=== PATIENT | female | born 1955 | race Caucasian/White ===

== ENCOUNTER 2019-08-29 10:38 | Emergency (ER) | payer MEDICARE, MEDICAID ==
[~2019-08-29] VITALS: Ht 167.6 cm; Wt 72.0 kg
[2019-08-29 10:56] VITALS: BP 138/80
--- NOTE | 2019-08-29 11:54 | NUR ---
CHRISTEL Arndt at bedside.
[2019-08-29] MEDS ORDERED: AZIT250T83 PO (12:24)
[2019-08-29] MEDS ORDERED: METH4TAB81 PO (12:24)
== END 2019-08-29 12:57 | disposition home or self-care (01) ==
LOC: ER 10:39
DX: J44.1 Chronic obstructive pulmonary disease with (acute) exacerbation (principal); G89.29 Other chronic pain; Z87.891 Personal history of nicotine dependence; Z88.0 Allergy status to penicillin
CPT/HCPCS: 71046; 99283

== ENCOUNTER 2022-10-30 11:31 | Emergency (ER) | payer MEDICARE, MEDICAID ==
[~2022-10-30] VITALS: Ht 167.6 cm; Wt 73.6 kg
[~2022-10-30 11:31] MED LIST: ALBU8HFA PO; BACL10TA2 PO; BUDE10.22 PO; DOCU-148 PO; DULO60CA65 PO; HYDR-3964 PO; LAMO100T PO; LORA10TA7 PO; LYSI500T11 PO; OXYB5TAB16 PO; PANT40TA54 PO; PREG100C55 PO; PRIM50TA5; TIOT18CA3
[2022-10-30 11:38] VITALS: BP 156/82
[2022-10-30] MEDS ORDERED: ketorolac trometh inj. 60 MG/2 ML VIAL IM ONE (14:00)
[2022-10-30] MEDS ORDERED: dexamethasone sod phosphate 10mg/ml inj IM STA (14:00)
[2022-10-30] MEDS ORDERED: orphenadrine citrate 60mg/2ml inj. IM ONE (14:00)
[2022-10-30] MEDS ORDERED: LIDOcaine 5% patch TP STA (16:29)
[2022-10-30] MEDS ORDERED: oxyCODONE/APAP 5-325mg tablet PO ONE (16:30)
[2022-10-30] MEDS ORDERED: GABA300C PO (17:17)
[2022-10-30] MEDS ORDERED: DIAZ5TAB22 PO (17:17)
[2022-10-30] MEDS ORDERED: NAPR-56 PO (17:17)
[2022-10-30] MEDS ORDERED: LIDO700A32 TOP (17:17)
== END 2022-10-30 17:37 | disposition home or self-care (01) ==
LOC: ER 11:32
DX: M54.41 Lumbago with sciatica, right side (principal); G89.29 Other chronic pain
CPT/HCPCS: 72131; 96372; 99285; J1100; J1885; J2360

== ENCOUNTER 2024-11-18 06:02 | Day surgery (SDC) | payer MEDICARE, MEDICAID ==
--- NOTE | 2024-11-11 14:39 | ELECTROCARDIOGRAPH REPORT ---
[facility] Test Date: 2024-11-11 Test Time: 14:36:03 Pat Name: OLLIE MARQUEZ Department: [facility]-PRE-OP Patient ID: [facility]-[id number] Room: Gender: F Ssrs Report Developer: BELKIS : 1955 Requested By: RAI ELIZONDO Order Number: [id number] Reading MD: Dr. DOLLY Aguilar Measurements Intervals [place] Rate: 53 P: 50 HI: 200 QRS: -66 QRSD: 98 T: 63 QT: 457 QTc: 430 Interpretive Statements Sinus bradycardia Left anterior fascicular block Abnormal R-wave progression, early transition Electronically Signed On 11-11-2024 17:45:[address] DOLLY Aguilar Please click the below link to view image of tracing.
[~2024-11-18] VITALS: Ht 167.6 cm; Wt 70.0 kg
[2024-11-18] VITALS (10 sets, daily range): BP systolic 100–129; BP diastolic 58–78; PULSE 65–80; RESP 10–18; TEMP 97.1; O2SAT 90–97
[2024-11-18] MEDS: tranexamic acid 1gm/0.7% sal. 100 ML IV ONE (05:30)
[2024-11-18] MEDS: clindamycin-Cleocin 900mg/D5W 50 ML IV ONE (05:30)
[~2024-11-18 06:02] MED LIST changes: -ALBU8HFA PO; -BACL10TA2 PO; -BUDE10.22 PO; -DOCU-148 PO; +DULO30CA52 PO; -DULO60CA65 PO; +GARL100T PO; -HYDR-3964 PO; +LAMO25TA5 PO; +MAGN250T11 PO; +MONT-47 PO; +MULT-1133 PO; -OXYB5TAB16 PO; +OXYB5TAB21 PO; -PANT40TA54 PO; +POTA99CA PO; -PREG100C55 PO; +PREG100C56 PO; -PRIM50TA5; +PRIM50TA5 PO; +SENN1TAB33 PO; -TIOT18CA3
[2024-11-18] MEDS ORDERED: cocaine 4% topical solution 4ml bottle ONE (06:42)
[2024-11-18] MEDS ORDERED: LIDOcaine 1% W/epiNEPHrine 1:100,000 20ml vial ONE (06:42)
[2024-11-18] MEDS ORDERED: methylPREDNISolone acetate 80mg/ml inj**IM only ONE (06:42)
[2024-11-18] MEDS ORDERED: oxymetazoline 15 ML nasal spray NS ONE (06:42)
[2024-11-18] MEDS ORDERED: epiNEPHrine 1 mg/ml 30ml MDV ONE (06:42)
[2024-11-18] MEDS ORDERED: mupirocin 2% ointment 22GM ONE (06:42)
[2024-11-18] MEDS ORDERED: Thrombin (Bovine) 5,000 unit vial TP ONE (06:43)
[2024-11-18] MEDS: famotidine 20mg tablet PO ONE (06:56)
[2024-11-18] MEDS: ringers solution, lacted 1,000 ML IV SCH ×2 (06:56→12:02)
[2024-11-18] MEDS: oxymetazoline 15 ML nasal spray NS ONE (06:57)
[2024-11-18] MEDS ORDERED: fentaNYL/PF 50MCG/1 ML 2ML syringe ONE (07:51)
[2024-11-18] MEDS ORDERED: LIDOcaine 2% (20mg/ml) 5ml vial ONE (07:52)
[2024-11-18] MEDS ORDERED: propofol inj 20 ML IV ONE (07:52)
[2024-11-18] MEDS ORDERED: dexamethasone sod phosphate 4mg/ml inj. ONE (07:52)
[2024-11-18] MEDS ORDERED: ondansetron/PF 4mg/2ml inj ONE (07:52)
[2024-11-18] MEDS ORDERED: midazolam 1 mg/ML 2ml injection ONE (07:52)
[2024-11-18] MEDS ORDERED: sevoflurane 250ml liquid IH ONE (08:00)
[2024-11-18] MEDS ORDERED: ePHEDrine 50MG/ML INJ. ONE (08:29)
[2024-11-18] MEDS ORDERED: acetaminophen 1,000mg/100ml IV 100 ML IV ONE (08:30)
[2024-11-18] MEDS ORDERED: hydrALAZINE 20mg/ml inj. IV PRN (08:50)
[2024-11-18] MEDS ORDERED: meperidine/PF 25mg/ml syringe IV PRN ×2 (08:50)
[2024-11-18] MEDS ORDERED: enalaprilat 1.25mg/ml 2ml vial IV PRN (08:50)
[2024-11-18] MEDS ORDERED: morphine 4 MG/ML inj SYRINge IV PRN (08:50)
[2024-11-18] MEDS ORDERED: ondansetron/PF 4mg/2ml inj IV PRN (08:50)
[2024-11-18] MEDS ORDERED: salt irrigation nasal spray 45 ML SPRAY NS PRN (10:25)
[2024-11-18] MEDS: morphine 2 MG/ML inj. syringe IV PRN (10:34)
[2024-11-18] MEDS: mupirocin 2% nasal ointment 1gm UD NS ONE (10:59)
[2024-11-18] MEDS: salt irrigation nasal spray 45 ML SPRAY NS ONE (10:59)
--- NOTE | 2024-11-18 11:19 | OPERATIVE REPORT ---
DATE OF SURGERY: 11/18/2024 DICTATING PHYSICIAN: Trenton Bird MD PREOPERATIVE DIAGNOSES: * Deviated nasal septum. * Hypertrophic inferior turbinates. 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 POSTOPERATIVE DIAGNOSES: * Deviated nasal septum. * Hypertrophic inferior turbinates. 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 PROCEDURE: * Septoplasty. * Submucous resection, right and left inferior turbinate. * Nasal endoscopy surgical with right and left middle meatal maxillary antrostomy with removal of tissue. * Nasal endoscopy surgical with right and left partial ethmoidectomy. * Stereotactic computer-assisted navigational procedure, extracranial. SURGEON: Trenton Bird MD. ANESTHESIA: General laryngeal mask, Dr. Carrillo. HISTORY: The patient is a 69-year-old female with a long history of nasal airway obstruction and recurrent acute rhinosinusitis refractory to multiple courses of antibiotics, decongestants, antihistamines, and topical steroids. On physical examination, the septum was deviated in a convoluted fashion obstructing both nasal airways along with hypertrophic inferior turbinates. CT scan confirmed the above along with evidence of bony obstruction in the ethmoid and maxillary sinus outflow tracts. On the basis of the above findings, I felt the patient had deviated nasal septum, hypertrophic turbinates, and chronic rhinosinusitis/recurrent acute rhinosinusitis. The patient was brought to the operating room for surgical management after the risks, alternatives, and benefits were explained to the patient and accepted. We were very careful to explain to the patient that we did not know that her headaches were secondary to any of the above and that there was a possibility that the surgery would not cure her headaches. PROCEDURE: The patient was brought to the operating room and given a general laryngeal mask anesthesia and prepped and draped in the usual fashion. Xylocaine 1% with 1:100,000 epinephrine was infiltrated into the planned surgical site utilizing headlight and endoscope. Image-guided system was attached to the patient and calibration and verification satisfactorily accomplished. The first procedure to be carried out was the septoplasty. A caudal incision was created on the right-hand side of the septum and a mucoperichondrial mucoperiosteal flap very carefully elevated. A Shu[place]ak knife was used to transect the quadrilateral cartilage just caudal to the most caudal deflection and a mucoperichondrial mucoperiosteal flap elevated off of the contralateral side. Then, the deviated portions of quadrilateral cartilage, perpendicular plate of the ethmoid, vomer, and maxillary crests were removed. Some of these were straightened with a caudal crusher and blender operator and replaced between the septal leaves and then the septal leaves were coapted using fibrin glue and 4-0 chromic on a P3 needle, which was also used to close the caudal incision. This yielded a midline septum. We then turned our attention to the sinuses. The left middle meatus was entered and high-grade obstruction of a bony etiology was noted. The uncinate process was tightly coapted to the bulla ethmoidalis. This was teased away using a flattened nerve hook and then completely removed using backbiting rongeur and microshaver. A posterior fontanelle entry was made into the left maxillary sinus and then this was connected up to the natural ostium creating a large hole middle medial macular antrostomy through which further hyperplastic tissue was removed using giraffe forceps and curved microshaver. We then carried out a partial ethmoidectomy using straight and curved microshaver blades and through-cut instrumentation removing hyperplastic tissue and bony obstruction from numerous anterior ethmoid air cells. Cottonoids were placed on the left. We turned our attention to the right. We carried out a right middle medial maxillary antrostomy with removal of tissue and a right partial ethmoidectomy. Utilizing the same techniques as described above, having encountered the same findings, namely high-grade obstruction of the infundibulum and hyperplastic tissue throughout the above-noted sinuses. Cottonoids were placed on the right. We then turned our attention to the inferior turbinates, which underwent a submucosal resection using the turbinate microshaver technique. A medial flap was elevated and then the undersurface of the flap was microshaved to remove the hypertrophic submucosal stroma. This was carried out both on the left and the right side (submucous resection right and left inferior turbinates.) The anterior incision of each inferior turbinate was closed with a drop of fibrin glue. At the end of the procedure, hemostasis was intact. PosiSep soaked in thrombin was left in each ethmoid cavity. Then, two cottonoids were used to create pressure hemostasis. These will be removed in the recovery room, leaving the patient unpacked. The patient tolerated the procedure well with accompaniment of a minimal blood loss. Surgery time was 8:13 to 10:15. Trenton Bird MD TID: [id number] RECEIPT: [id number] RUI/ROHIT
[2024-11-18] MEDS ORDERED: mupirocin 2% nasal ointment 1gm UD NS SCH (20:00)
== END 2024-11-18 11:43 | disposition home or self-care (01) ==
LOC: PAS 06:02
PROVIDERS: ATTEND Otolaryngology
DX: J34.2 Deviated nasal septum (principal); J34.3 Hypertrophy of nasal turbinates; J32.9 Chronic sinusitis, unspecified; F32.A Depression, unspecified; I44.4 Left anterior fascicular block; F41.9 Anxiety disorder, unspecified; M19.90 Unspecified osteoarthritis, unspecified site; Z90.710 Acquired absence of both cervix and uterus; J44.9 Chronic obstructive pulmonary disease, unspecified; Z98.890 Other specified postprocedural states; Z79.899 Other long term (current) drug therapy; Z87.891 Personal history of nicotine dependence; Z88.0 Allergy status to penicillin
CPT/HCPCS: 30140; 30520; 31254; 31267; 61782; 82948; 88300; 88304; 88311; 93005; A4618; A6402; A7000; J0131; J0171; J1010; J1100; J2003; J2250; J2270; J2405; J2704; J3010; J3490; J7030; J7040; J7120; Z7506; Z7508; Z7512; Z7610

== ENCOUNTER 2025-04-21 14:36 | Emergency (ER) | payer MEDICARE, MEDICAID ==
[~2025-04-21] VITALS: Ht 167.6 cm; Wt 69.3 kg
[~2025-04-21 14:36] MED LIST changes: +LAMO-24 PO; -LAMO25TA5 PO; -LYSI500T11 PO; +LYSI500T20 PO
[2025-04-21 14:41] VITALS: TEMP 97.2
--- NOTE | 2025-04-21 15:06 | Physician Documentation ---
History of Present Illness Chief Complaint: Abdominal Pain Stated Complaint: FLANK PAIN Time Seen by MD: 15:06 Primary Medical Doctor: ALIVIA ALMAGUER 69-year-old female, presenting with abdominal pain. She tells me that she has a history of COPD, and frequently coughs. She had a coughing spell, and suddenly developed severe pain and swelling in her right groin region. She tells me that there is a hard painful lump there. It is more painful when she tries to use the bathroom. She denies any nausea or vomiting. No change in her bowels. No dysuria. No history of previous groin hernia although she did have a ventral hernia Medication Reconciliation Allergies: Coded Allergies: Penicillins (Verified Allergy, Severe, SWELLING, 04/21/25) Scheduled Duloxetine HCl (Duloxetine HCl), 1 CAP PO QAM, (Reported) Garlic (Garlic), 1 UNIT PO QPM, (Reported) Lamotrigine (LaMICtal tablet), 100 MG PO QPM, (Reported) Lamotrigine (Lamotrigine), 1 TAB PO QPM, (Reported) Loratadine (Loratadine), 1 TAB PO DAILY, (Reported) Lysine (l-Lysine), 1 TAB PO QPM, (Reported) Magnesium Oxide (Magnesium), 1 TAB PO QPM, (Reported) Montelukast Sodium (Singulair), 1 TAB PO DAILY, (Reported) Multivits-Min/Iron/FA/Lutein (Centrum Silver Women Tablet), 1 TAB PO QAM, (Reported) Oxybutynin Chloride (Oxybutynin Chloride), 1 TAB PO HS, (Reported) Potassium Citrate (Potassium), 1 TAB PO QPM, (Reported) Pregabalin (Pregabalin), 1 CAP PO BID, (Reported) Primidone (Mysoline), 1 TAB PO QAM, (Reported) Primidone (Mysoline), 5 TAB PO QPM, (Reported) Sennosides/Docusate Sodium (Docusate Sodium-Sennosides Tab), 1 EACH PO BID, (Reported) Scheduled PRN Hydrocodone Bit/Acetaminophen 5/325 MG (Zuni 5/325 MG), 1 TAB PO Q6H PRN for pain Past Medical History Past Medical History: COPD, Chronic Back Pain Past Surgical History: no surgical history Lives In: Home Review of Systems Gastrointestinal: Reports: abdominal pain; Denies: vomiting, diarrhea Physical Exam Vital Signs: Temperature: 97.2, Heart Rate: 78, Respiratory Rate: 18, BP: 161/83, Pulse Oximetry: 96, Weight: 69.300 Oxygen Flow Rate: 0 Physical Exam General: This is a uncomfortable appearing older woman, daughter at bedside HEENT: Atraumatic, oropharynx is moist Heart: Regular rate and rhythm, normal-appearing peripheral perfusion Lungs: normal work of breathing, normal oxygen saturation on room air Abdomen: Soft, nondistended, nontender all quadrants Groin: I did offer a analytical strategist, but the patient declined. Her daughter was present during the exam. In the right groin region she has a small firm nonmobile mass that is very tender on palpation, no overlying skin changes Neuro: Alert and oriented Psychiatric: Anxious and appears in pain, intermittently tearful Progress Results/Orders Results/Orders Orders - PETE LIRA MD Urinalysis, Cult If Indicated (04/21/25 14:41) Cbc/Diff (04/21/25 14:41) BMP (04/21/25 14:41) Lipase (04/21/25 14:41) CMP (04/21/25 14:41) Vital Signs 04/21/25 14:41 Temp 97.2 Pulse 78 Resp 18 B/P (MAP) 161/83 Pulse Ox 96 O2 Flow Rate 0 Laboratory Tests Test 04/21/25 14:48 Urine Comment Medical Decision Making Additional information obtaine: family Findings Daughter reports no history of lump in the groin previously Differential Dx:Considerations: Appendicitis, Bowel obstruction, Diverticular disease, Hernia Additional Comments The patient presents with sudden onset of right groin pain. Per her history and exam this appears consistent with an incarcerated hernia. An IV was placed and she was given pain medication. I was not able to easily reduce her hernia. Labs and urinalysis are unremarkable. A CT scan was then obtained which shows a small fat containing inguinal hernia, no bowel involvement or other complication. On re-evaluation her pain is well controlled. I did offer admission for pain control and surgical consult, but she felt better and pref erred to try to go home. She will follow up in the surgical clinic as an outpatient. She will return immediately if she has worsening symptoms. Departure Time of Disposition: 18:34 Disposition: 01 HOME / SELF CARE / HOMELESS Impression: Primary Impression: Inguinal hernia Condition: Stable Referrals: NO PRIMARY CARE PROVIDER (PCP) PRISCILLA GRACIA MD Prescriptions Hydrocodone Bit/Acetaminophen 5/325 MG (Zuni 5/325 MG) 5 Mg/325 Mg Tablet 1 TAB PO Q6H PRN for pain, #16 TAB Prov: PETE LIRA MD 04/21/25 Education Educated: Patient, Family Educated regarding: diagnosis, treatment Signature Scribe Signature: marcel Attestation: PETE Armijo MD Apr 21, 2025 15:06
[2025-04-21 15:10] LABS: LEUKOCYTE ESTERASE ,URINE NEGATIVE (Neg); NITRITES, URINE NEGATIVE (Neg); OCCULT BLOOD,URINE NEGATIVE (Neg)
[2025-04-21 15:21] LABS: UA COLLECTION TYPE CLN CATCH MIDSTREAM
[2025-04-21 15:48] LABS: MEAN PLATELET VOLUME 9.0 FL (7.4-10.4); RED CELL DISTRIBUTION WIDTH 14.0 % (11.5-14.5)
[2025-04-21] MEDS: ondansetron/PF 4mg/2ml inj IV ONE (15:59)
[2025-04-21] MEDS: HYDROmorphone inj. 0.5 MG/0.5 ML DISP.SYRIN IV ONE (16:00)
[2025-04-21 16:24] LABS: CREATININE 0.72 MG/DL (0.40-0.90); TOTAL CARBON DIOXIDE 27.3 MMOL/L (24-32); eCRCL 68 ML/MIN; eGFR 80 ML/MIN
[2025-04-21] MEDS ORDERED: iohexol 300mg/ml 100ml inj. ONE (17:07)
--- NOTE | 2025-04-21 17:52 | RADIOLOGY REPORT ---
Exam: CT CT ABDOMEN PELVIS W/ IV CONTRAST History: lower abd pain, right groin pain and swelling COMPARISON: None Technique: Multidetector spiral CT of the abdomen and pelvis was performed from lung bases to pubic symphysis. Intravenous contrast was administered during this examination. Portal venous imaging was obtained. Axial, coronal and sagittal multiplanar reformats were performed by the technologist on a separate workstation. Radiation Dose : 1. Abdomen/Pelvis: CTDIvol 16.37 mGy, DLP 769.06 mGy*cm. CONTRAST: Type of contrast: Omnipaque 300 Contrast injected: 100 ml Findings: Lung Bases: No acute or significant lung base finding. Normal heart size. No pleural or pericardial effusion. Liver: The liver is normal in size. No focal lesions. Normal hepatic vascular enhancement. Gallbladder and Biliary Tree: Gallbladder is surgically absent. Spleen: Unremarkable Pancreas: The pancreas is normal in appearance without focal lesions or abnormal enhancement. Adrenal Glands: Unremarkable Kidneys: No hydronephrosis. Bladder: Unremarkable Bowel: The stomach is grossly normal in appearance. Small bowel and colon are normal in caliber and distribution. The appendix is not visualized; however, no secondary findings of acute appendicitis identified. Ascites: Absent Lymphadenopathy: No mesenteric, retroperitoneal or periportal lymphadenopathy. Abdominal Wall and Mesentery: Small fat containing right inguinal hernia. Mild inflammatory changes.. Vasculature: The visualized abdominal aorta is normal in size and caliber. Abdominal and pelvic vessels demonstrate normal enhancement. Pelvic Organs: Unremarkable Musculoskeletal: No aggressive focal bony lesions, acute fractures or dislocation. IMPRESSION: Small fat containing right inguinal hernia with. Minimal inflammatory changes. Colonic diverticulosis without acute diverticulitis. Otherwise no clear cause for symptoms. Radiation optimization: All CT scans at this facility use at least one of these dose optimization techniques: automated exposure control mA and/or kV adjustment per patient size (includes targeted exams where dose is matched to clinical indication) or iterative reconstruction.
[2025-04-21] MEDS ORDERED: HYDR-3965 PO (18:35)
[2025-04-21 18:50] VITALS: BP 117/73; PULSE 65; RESP 12; O2SAT 96
== END 2025-04-21 18:51 | disposition home or self-care (01) ==
LOC: ER 14:37
DX: K40.90 Unilateral inguinal hernia, without obstruction or gangrene, not specified as recurrent (principal); J44.9 Chronic obstructive pulmonary disease, unspecified; G89.29 Other chronic pain; Z88.0 Allergy status to penicillin; Z79.899 Other long term (current) drug therapy
CPT/HCPCS: 36415; 74177; 80053; 81003; 83690; 85025; 96374; 96375; 96376; 99285; J1171; J2405; Q9967

== ENCOUNTER 2025-06-23 10:11 | Day surgery (SDC) | payer MEDICARE, MEDICAID ==
[2025-06-19 10:53] LABS: MEAN PLATELET VOLUME 8.8 FL (7.4-10.4); PRE OP HEMATOCRIT 42.9 % (35.0-45.0); PRE OP HEMOGLOBIN 14.1 g/dL (12.0-16.0); PRE OP PLATELET COUNT 321 X10'3 (140-440); PRE OP WHITE BLOOD COUNT 6.9 10'3 (4.8-10.8); RED CELL DISTRIBUTION WIDTH 14.8 % (11.5-14.5)
--- NOTE | 2025-06-19 10:57 | ELECTROCARDIOGRAPH REPORT ---
[facility] Test Date: 2025-06-19 Test Time: 10:55:05 Pat Name: OLLIE MARQUEZ Department[id number] Room: Gender: F Manager Center: [place] : 1955 Requested By: PRISCILLA GRACIA Order Number: [id number] Reading MD: Dr. DOLLY Aguilar Measurements Intervals [place] Rate: 60 P: 77 SC: 214 QRS: -68 QRSD: 89 T: 76 QT: 433 QTc: 433 Interpretive Statements Sinus rhythm Borderline prolonged SC interval Consider left atrial enlargement LAD, consider left anterior fascicular block Electronically Signed On 06-19-2025 12:19:[address] DOLLY Aguilar Please click the below link to view image of tracing.
[2025-06-19 11:23] LABS: CREATININE 0.77 MG/DL (0.40-0.90); PRE OP ALT 26 U/L (30-65); PRE OP ANION GAP 3 (8-16); PRE OP AST 15 U/L (10-37); PRE OP BILIRUB, TOTAL 0.3 MG/DL (0.0-1.0); PRE OP GLUCOSE 90 MG/DL (70-104); PRE OP POTASSIUM 4.1 MMOL/L (3.4-5.1); PRE OP SODIUM 143 MMOL/L (135-145); TOTAL CARBON DIOXIDE 30.9 MMOL/L (24-32); eGFR 74 ML/MIN
[2025-06-23] VITALS (13 sets, daily range): BP systolic 104–153; BP diastolic 54–71; PULSE 65–91; RESP 10–20; TEMP 97.5; O2SAT 90–96
[~2025-06-23] VITALS: Ht 167.6 cm; Wt 68.5 kg
[2025-06-23] MEDS: clindamycin-Cleocin 900mg/D5W 50 ML IV ONE (05:30)
[~2025-06-23 10:11] MED LIST changes: +ALB0.5UD NEB; +BUDE10.2 INH; -LAMO-24 PO; -SENN1TAB33 PO; +[UNRECOGNIZED DRUG - CODE] PO
[2025-06-23] MEDS: ringers solution, lacted 1,000 ML IV SCH (10:44)
[2025-06-23] MEDS ORDERED: BUPIVAcaine/PF 2.5mg/ml (0.25%) 10ml vial ONE (11:41)
[2025-06-23] MEDS ORDERED: LIDOcaine 1% 30ml preserv. free vial ONE (11:41)
[2025-06-23] MEDS ORDERED: BUPIVAcaine 2.5mg/ml inj 50ml vial (contains preservative) ONE (11:41)
[2025-06-23] MEDS ORDERED: BUPIVACAINE liposomal/PF 13.3 MG/ML 10mL vial IM ONE (11:42)
--- NOTE | 2025-06-23 11:44 | HISTORY AND PHYSICAL ---
History & Physical Providers to CC CC: PRISCILLA GRACIA MD ~ History of Present Illness Reason for Admit\Complaint: Incisional hernia, right inguinal hernia History of Present Illness Interval history and physical exam Patient here today for elective repair of both incisional hernias and a right inguinal hernia. She has a history of open cholecystectomy and open hiatal hernia repair from years ago and other surgeons. She has been having symptoms from both her incisional and right inguinal hernias. Other than that, she denies any change in her past medical history since she was seen in the office a few months ago (please see previous history and physical exam for all pertinent details). Allergies: Coded Allergies: Penicillins (Verified Allergy, Severe, SWELLING, 04/21/25) Home Medications Home Medications Active Reported Symbicort 160-4.5 Mcg Inhaler (Budesonide/Formoterol Fumarate) 160 Mcg-4.5 Mcg/Actuation Hfa.aer.ad 2 Puffs INH DAILY Proventil Nebs* (Albuterol) 2.5 Mg/0.5 Ml Vial.neb 1 Vial NEB Q4H Mysoline (Primidone) 50 Mg Tablet 5 Tab PO QPM 30 Days Potassium (Potassium Citrate) 99 Mg Capsule 1 Tab PO QPM Docusate Sodium-Sennosides Tab (Sennosides/Docusate Sodium) 8.6 Mg-50 Mg Tablet 1 Each PO BID Duloxetine HCl 30 Mg Capsule.dr 1 Cap PO QAM Magnesium (Magnesium Oxide) 250 Mg Tablet 1 Tab PO QPM Garlic Unknown Strength Tablet 1 Unit PO QPM Centrum Silver Women Tablet (Multivits-Min/Iron/FA/Lutein) 8 Mg Iron-400 Mcg-50 Mcg-300 Mcg Tablet 1 Tab PO QAM 30 Days Singulair (Montelukast Sodium) 10 Mg Tablet 1 Tab PO DAILY 30 Days Pregabalin 100 Mg Capsule 1 Cap PO BID l-Lysine (Lysine) 500 Mg Tablet 1 Tab PO QPM LaMICtal tablet (Lamotrigine) 100 Mg Tablet 100 Mg PO QPM Oxybutynin Chloride 5 Mg Tablet 1 Tab PO HS Loratadine 10 Mg Tablet 1 Tab PO DAILY Mysoline (Primidone) 50 Mg Tablet 1 Tab PO QAM ROS ROS Reviewed and negative with the exception of those found in the history of present illness Exam General: 69-year-old female in no acute distress Chest: Lungs are clear to auscultation bilaterally Cardiovascular: Regular rate and rhythm without murmurs Abdomen: Soft and nondistended Surgical scars consistent with past surgical history In the low to midepigastrium there are multiple palpable masses that are not reducible with the associated cough impulse. Palpable mass and cough impulse in the right groin Right side of the abdomen marked with indelible ink Diagnostic Data Last Recorded Lab Results: 06/19/25 1034 06/19/25 1034 Problems: (1) Right inguinal hernia (2) Incarcerated incisional hernia Additional Plan The risks, benefits, and alternatives to a robotic assisted, laparoscopic incisional and right, possible left inguinal hernia repairs with mesh were discussed with the patient. Risks include, but are not limited to, bleeding, infection, injury to intra-abdominal structures, hernia recurrence, open procedure and the need for additional surgery. Chronic postoperative pain was also discussed. Persistent preoperative symptoms of abdominal pain were also discussed. Patient verbalized understanding and we will proceed with surgery today as scheduled. Sepsis Screening Reassessment Date: Jun 23, 2025 PRISCILLA GRACIA MD Jun 23, 2025 11:44
[2025-06-23] MEDS ORDERED: fentaNYL/PF 50MCG/1 ML 2ML syringe ONE ×2 (11:48→13:09)
[2025-06-23] MEDS ORDERED: dexamethasone sod phosphate 4mg/ml inj. ONE (11:49)
[2025-06-23] MEDS ORDERED: LIDOcaine 2% (20mg/ml) 5ml vial ONE (11:49)
[2025-06-23] MEDS ORDERED: acetaminophen 1,000mg/100ml IV 100 ML IV ONE ×2 (11:49)
[2025-06-23] MEDS ORDERED: ondansetron/PF 4mg/2ml inj ONE (11:49)
[2025-06-23] MEDS ORDERED: rocuronium 10mg/ml inj IV ONE (11:49)
[2025-06-23] MEDS ORDERED: hydrALAZINE 20mg/ml inj. IV PRN (11:55)
[2025-06-23] MEDS ORDERED: ondansetron/PF 4mg/2ml inj IV PRN (11:55)
[2025-06-23] MEDS ORDERED: labetalol 20mg/4ml (5mg/ml) syringe IV PRN (11:55)
[2025-06-23] MEDS ORDERED: fentaNYL/PF 50MCG/1 ML 2ML syringe IV PRN ×2 (11:55)
[2025-06-23] MEDS ORDERED: HYDROmorphone/PF 0.2 MG/ML SYRINGE IV PRN ×2 (11:55)
[2025-06-23] MEDS ORDERED: ringers solution, lacted 1,000 ML IV SCH (11:55)
[2025-06-23] MEDS ORDERED: propofol 10mg/ml 20ml vial IV ONE (12:12)
[2025-06-23] MEDS: LIDOcaine 1% 30ml preserv. free vial IJ ONE (12:30)
[2025-06-23] MEDS: BUPIVAcaine/PF 2.5 mg/ml (0.25%) 30ml vial IJ ONE ×2 (12:30→14:00)
[2025-06-23] MEDS: BUPIVACAINE liposomal/PF 13.3 MG/ML 10mL vial IM ONE (14:00)
--- NOTE | 2025-06-23 14:26 | OPERATIVE REPORT ---
Operative Report Providers to CC CC: CHARLY GRACIA MD ~ Date of Procedure: Jun 23, 2025 Pre-Operative Diagnosis: Incisional hernia, right inguinal hernia Post-Operative Diagnosis SAME as PRE-Op Procedure Performed Robotic assisted, laparoscopic Enterolysis Robotic assisted, laparoscopic 2 cm incarcerated incisional hernia repair with mesh Robotic assisted, laparoscopic right inguinal hernia repair with mesh Bilateral transversus abdominis plane nerve blocks by injection using 266 mg of Exparel Surgeon: Charly Gracia MD FACS Slasher Operator None Anesthesiologist: Reji Carrillo Type of Anesthesia: General Findings: Fairly extensive intra-abdominal adhesions between omentum as well as transverse colon and the anterior abdominal wall. Adhesions between the right lobe of the liver and the anterior abdominal wall 2 cm midline hernia in the midepigastrium with the herniated and incarcerated om entum Moderate-sized indirect right inguinal hernia with large amount of herniated preperitoneal fat Wound Class I Complications None Prosthetics\Implants used: 12 cm coated polyester mesh repairing the incisional hernia Medium-sized right Dextile inguinal hernia mesh Estimated Blood Loss: Minimal Specimen Removed: None Description of Procedure: Patient was brought to the operating room and identified by the nursing staff and the attending physician. Patient was placed supine and a general anesthesia was induced. Preoperative antibiotics were given. The abdomen was prepped and draped in the standard sterile fashion. Through a left subcostal stab incision the abdomen was accessed with a Veress needle technique. Abdomen was insufflated without incident. The incision was lengthened to accommodate a 12 mm optical trocar and the abdomen was entered under laparoscopic visualization. The abdomen was surveyed laparoscopically. There were fairly extensive adhesions between omentum, transverse colon and the anterior abdominal wall. These were preventing visualization of anything but the left pericolic gutter. Under laparoscopic visualization, robotic trochars were placed in the left lateral and left lower quadrant. The da Rosalia robotic arm was docked to the patient and instruments guided intra-abdominally under laparoscopic visualization. The next 30-40 minutes was spent taking down adhesions between omentum and transverse colon and the anterior abdominal wall. In doing so, a 2 cm fascial defect with herniated and incarcerated omentum was encountered. The incarcerated tissue was reduced. There were also fairly significant adhesions between the right lobe of the liver and the anterior abdominal wall that carried out laterally to the right pericolic gutter/hepatic flexure. These were all taken down as well. At this point the instruments were removed and the Rollbar Rosalia robotic arm was undocked from the patient. Attention was turned to the right hemipelvis where a indirect inguinal hernia was identified. There was no obvio us hernia on the left. Two additional robotic trocars were then placed in the right mid abdomen and right lateral abdomen under laparoscopic visualization. Patient was placed in slight Trendelenburg position. Mesh and suture were passed into the abdomen. The da Rosalia robotic arm was redocked to the patient and instruments placed intra-abdominally under laparoscopic visualization. The left hemipelvis was examined and showed no evidence of left inguinal hernia. A direct hernia was identified on the right side. Hernia sac was small-moderate in size. A rent was created in the peritoneum from the median umbilical fold and carried out laterally towards the anterior superior iliac spine. Preperitoneal flap was created and carried down to the symphysis pubis. The retropubic space of Retzius was developed and the bladder swept medially. Dissection was carried out laterally until a direct hernia sac was identified. This was moderate in size. Hernia sac was completely dissected away from direct space and reduced. The critical view of the myopectineal orifice was achieved. Dissection was carried out laterally to allow space for mesh deployment. Right round ligament was divided. A median Dextile mesh and suture was passed intra-abdominally. Mesh was laid in the preperitoneal space covering both indirect, direct, and potential femoral and obturator hernias. Mesh laid without wrinkles or folds. 3 tacking sutures using 0 Ethibond were used to fix the mesh at the symphysis pubis, rectus abdominis, and just anterior to the anterior superior iliac spine. The peritoneal rent was then closed with running, 2/0, absorbable locking sutu re. The de Rosalia robotic arm was undocked again after the ports were removed and read docked to the lateral ports to repair the incisional hernia. Fascial defect(s) were then reapproximated with running, long-absorbable, 0V lock suture. Good fascial apposition was obtained without significant tension. A coated polyester mesh was then fixed to the anterior abdominal wall with run pura, absorbable, 2/0, V lock suture. Mesh laid without wrinkles or folds. The mesh measured 12 cm in diameter The Explara instruments were then removed and the robot undocked from the patient. Bilateral transversus abdominis plane nerve blocks by injection were then placed under laparoscopic visualization using a combination of Marcaine and 266 mg of Exparel. The left subcostal trocar was removed and its fascia closed percutaneously with 0 Vicryl suture under laparoscopic visualization. Remaining trochars were removed after the abdomen was allowed to deflate. Skin was closed at all sites with 4-0 Monocryl sutures and dressed with sterile dressings. Patient was awakened and taken to the postanesthesia care unit in stable condition. Counts repoted as correct: Yes CHARLY GRACIA MD Jun 23, 2025 14:26
[2025-06-23] MEDS: oxyCODONE/APAP 5-325mg tablet PO PRN (15:31)
== END 2025-06-23 16:51 | disposition home or self-care (01) ==
LOC: PAS 10:11
PROVIDERS: ATTEND Surgery
DX: K43.0 Incisional hernia with obstruction, without gangrene (principal); K40.90 Unilateral inguinal hernia, without obstruction or gangrene, not specified as recurrent; G89.18 Other acute postprocedural pain; F41.9 Anxiety disorder, unspecified; F32.9 Major depressive disorder, single episode, unspecified; Z90.49 Acquired absence of other specified parts of digestive tract; Z88.0 Allergy status to penicillin; Z79.51 Long term (current) use of inhaled steroids; Z79.899 Other long term (current) drug therapy; Z90.710 Acquired absence of both cervix and uterus; Z91.09 Other allergy status, other than to drugs and biological substances
CPT/HCPCS: 36415; 49592; 49650; 64488; 80053; 82948; 85025; 93005; A4215; A4615; A4618; C1781; J0131; J0666; J1100; J2003; J2405; J2704; J3010; J3490; J7030; J7120; Z7506; Z7508; Z7512; Z7610